=== PATIENT | female | born 1970 | race Caucasian/White ===

== ENCOUNTER 2022-05-19 07:47 | Emergency (ER) | payer OTHER, SELFPAY ==
[2022-05-19 07:52] VITALS: BP 137/82; PULSE 78; RESP 20; TEMP 36.3; O2SAT 100; BMI 48.8
[2022-05-19 08:52] VITALS: BP 150/89; PULSE 64; O2SAT 99
[2022-05-19 08:53] VITALS: PULSE 64; O2SAT 99
[2022-05-19 09:00] VITALS: PULSE 60; O2SAT 97
[2022-05-19 09:02] VITALS: BP 124/80; PULSE 68; O2SAT 97
[2022-05-19 09:05] LABS: Basophils Absolute Auto 0.02 K/uL (0.00-0.30); Basophils Percent Auto 0.2 % (0.0-3.0); Eosinophils Percent Auto 1.2 % (0.0-7.0); Hematocrit 48.3 % (33.0-51.0); Hemoglobin* 15.8 gm/dL (12.0-16.0); Immature Granulocytes Abs Auto 0.02 K/uL (0.00-0.30); Immature Granulocytes Pct Auto 0.2 %; Lymphocytes Absolute Auto 1.82 K/uL (0.90-2.90); Lymphocytes Percent Auto 22.4 % (20-44); Mean Corpuscular HGB Conc 33 gm/dL (32-36); Mean Corpuscular Hemoglobin 28 pg (26-34); Mean Corpuscular Volume 85 fL (80-100); Monocytes Percent Auto 5.7 % (0.0-11.0); Neutrophils Absolute Auto 5.69 K/uL (1.7-7.0); Neutrophils Percent Auto 70.3 % (42.0-72.0); Platelet Count* 332 K/uL (140-440); RDW Coefficient of Variation % 13.6 % (11.5-15.5); Red Blood Count 5.71 m/uL (4.00-5.20); White Blood Count* 8.11 K/uL (4.50-11.00)
[2022-05-19 09:16] LABS: Slide Review Reflex No
[2022-05-19 09:19] LABS: Albumin* 4.5 g/dL (3.3-5.0)
[2022-05-19 09:20] LABS: Chloride* 109 mmol/L (96-114); Potassium* 4.1 mmol/L (3.6-5.1); Sodium* 141 mmol/L (135-149)
[2022-05-19 09:22] LABS: Alkaline Phosphatase* 79 U/L (40-150); Aspartate Amino Transferase* 21 U/L (12-35); Bilirubin Direct* 0.2 mg/dL (0.0-0.5); Bilirubin Total* 0.6 mg/dL (0.1-1.5); D Dimer Quantitative* 0.31 ug/ml (0.00-0.50)
[2022-05-19 09:23] LABS: Alanine Aminotransferase* 20 U/L (4-35); Creatinine* 0.7 mg/dL (0.5-1.5); Est. Creatinine Clearance* 74.35; Estimated Glomerular Filt Rate 104 ml/min
[2022-05-19 09:24] LABS: Blood Urea Nitrogen* 18 mg/dL (7-30); Calcium* 9.1 mg/dL (8.4-10.6); Carbon Dioxide* 25 mmol/L (20-32); Glucose* 94 mg/dL (60-115)
[2022-05-19] MEDS: KETOROLAC 15 MG/ML inj IVP (09:25)
[2022-05-19 09:27] LABS: C Reactive Protein* 1.6 mg/dL (0.5-1.0)
--- NOTE | 2022-05-19 09:27 | ED_ITS ---
HPI - General Adult General Date Seen: 05/19/22 Chief complaint: Chest Pain Stated complaint: sore chest area Time Seen by Provider: 05/19/22 08:08 Source: patient Mode of arrival: ambulatory Limitations: no limitations History of Present Illness HPI narrative: Patient is a 51-year-old woman who presents for evaluation of anterior chest pain which started yesterday. She says she was at rest when it started and it has been consistent since then. She describes as like muscle soreness is if she has lifted weights but she denies having done any exercise like that. She says it hurts to move like when she twists her chest, but it does not hurt to take a deep breath. She has not been short of breath, nauseated, or diaphoretic. It does not hurt more with exertion or with eating, but it does feel better sitting up then with laying down. She does not have a history of reflux. Gallbladder is absent. She has not had any fevers or cough. No lower extremity swelling or pain. No personal history of coronary artery disease, DVT or PE. Denies family history of same. She has not tried any medicines for her pain. She decided she should get it checked out today because it has persisted since yesterday. It is not any worse today than it was yesterday. She wonders if it might be stress related as she is concerned about her son and his job situation. She is somewhat tearful while talking about this, but does not overtly otherwise seem stressed or panicky. She does not smoke, denies significant alcohol use. Related Data Home Medications Medication Instructions Recorded Confirmed tirzepatide 2.5 mg/0.5 mL 2.5 mg subcut QWEEK 05/19/22 05/19/22 subcutaneous pen injector (Urielunmarina) Review of Systems Status of ROS: Reports: 10 or more systems reviewed and unremarkable except as noted in History and below PFS PFS Social History Smoking Status: Never smoker Do you use any of these nicotine containing products: None How often do you have a drink containing alcohol: monthly or less How many standard drinks containing alcohol do you have on a typical day: 1 or 2 AUDIT-C Alcohol total score: 1 Non-prescribed substance use: denies use Exam Narrative: Exam Narrative: Vital signs as noted above. In general, an alert, well-appearing patient. Head: Normocephalic, atraumatic. Eyes: Pupils are equal reactive. Extraocular movements are full. Conjunctivae are normal. ENT: Mucous membranes are moist. Throat is normal. Neck: Supple without lymphadenopathy. Heart: Regular rate and rhythm. No murmur or rub. Chest wall is nontender to palpation. Lungs: Clear bilaterally. No increased work of breathing, crackles or wheezes. Abdomen: Soft and nontender. No organomegaly. Extremities: Well perfused. No edema. No calf tenderness. Pulses intact. Neurologic: Patient is alert and oriented to person and place. Speech is fluent. Face is symmetric. Moves all extremities equally. Affect: Normal. Skin: Warm and dry. Well perfused. Const: Vital Signs, click to edit/add: Vital Signs - 24 hr 05/19/22 07:52 05/19/22 12:20 Temperature 97.3 F L 97.3 F L Pulse Rate [Pulse Oximeter] 78 78 Respiratory Rate 20 20 Blood Pressure [Ri ght Upper Arm] 137/82 147/82 H Pulse Oximetry 100 Oxygen Delivery Me thod Room Air Course Course Hospital Course: On arrival, she had an EKG which by my review showed a normal sinus rhythm, ventricular rate of 64. No acute ST segment changes. No OH depression. T- waves are unremarkable. Overall, some features of this seemed chest wall re lated, the fact that it hurts to twist her chest sounds more chest wall than anything else. However, the fact that it feels better to set up rather than lie down is somewhat suggestive of pericarditis. Her EKG does not show any suggestion of pericarditis however. Will see if inflammatory markers are elevated at all. Initial troponin is 0. I am going to try some Toradol and see if that is helpful for her symptomatically. Given that symptoms have been constant since yesterday, I think a negative troponin is helpful in suggesting that this is not likely due to coronary artery disease. D-dimer is pending. CBC shows a normal white blood cell count, hemoglobin is 15.8, platelets are normal. If D-dimer is negative, will do a chest x-ray to rule out other less likely causes such as pneumonia, pneumothorax, pleural effusion, pulmonary edema. LFTs are normal, given absent gallbladder and lack of abdominal pain or tenderness, I think abdominal causes such as pancreatitis, gastritis, gas troesophageal reflux are somewhat less likely. D-dimer was negative, I think effectively ruling out PE. Her CRP was 1.6, sed rate was normal. COVID was negative. A 2 hour troponin was 0. I have reviewed all this with her. Acute coronary syndrome I think is effectively ruled out with 24 hours of symptoms and 2- troponins. Did discuss with her that this does not rule out the presence of coronary artery disease, but my suspicion is relatively low that today's symptoms are due to coronary artery disease. There is a positional nature that is possibly suggestive of pericarditis. The fact t hat it hurts when she moves her chest wall is less suggestive of pericarditis and more suggestive that this is something in the chest wall itself. I have talked through all this with her. I think for now makes most sense to just to treat with anti-inflammatories and see how she does over the next couple days. If she is not improving I would like her to check in with primary care next week. Discussed that if she has worsening symptoms such as fever, significant shortness of breath or severe pain she should return to the emergency department. Otherwise, for persistent symptoms see primary care and additional evaluation may be needed such as echo. Vital Signs Vital signs: Initial Vital Signs Temperature 97.3 F L 05/19/22 07:52 Temperature Source Temporal Artery Scan 05/19/22 07:52 Pulse Rate 78 05/19/22 07:52 Pulse Rhythm 05/19/22 07:52 Respiratory Rate 20 05/19/22 07:52 Blood Pressure 137/82 05/19/22 07:52 Blood Pressure Mean 100 05/19/22 07:52 Blood Pressure Position Sitting 05/19/22 07:52 Pulse Oximetry 100 05/19/22 07:52 Oxygen Delivery Method 05/19/22 07:52 Vital Signs Temperature 97.3 F L 05/19/22 07:52 Pulse Rate 78 05/19/22 07:52 Respiratory Rate 20 05/19/22 07:52 Blood Pressure 137/82 05/19/22 07:52 Pulse Oximetry 100 05/19/22 07:52 Oxygen Delivery Method 05/19/22 07:52 Temperature 97.3 F L 05/19/22 12:20 Pulse Rate 78 05/19/22 12:20 Respiratory Rate 20 05/19/22 12:20 Blood Pressure 147/82 H 05/19/22 12:20 Pulse Oximetry 100 05/19/22 07:52 Oxygen Delivery Method 05/19/22 07:52 Medical Decision Making Lab Data Labs: Lab Results 05/19/22 05/19/22 05/19/22 Range/Units 08:45 08:45 08:45 WBC 8.11 (4.50-11.00) K/uL RBC 5.71 H (4.00-5.20) m/uL Hgb 15.8 (12.0-16.0) gm/dL Hct 48.3 (33.0-51.0) % MCV 85 (80-100) fL MCH 28 (26-34) pg MCHC 33 (32-36) gm/dL RDW Coeff of Leah 13.6 (11.5-15.5) % Plt Count 332 (140-440) K/uL Neut % (Auto) 70.3 (42.0-72.0) % Lymph % (Auto) 22.4 (20-44) % Cocke % (Auto) 5.7 (0.0-11.0) % Eos % (Auto) 1.2 (0.0-7.0) % Baso % (Auto) 0.2 (0.0-3.0) % Neut # (Auto) 5.69 (1.7-7.0) K/uL Lymph # (Auto) 1.82 (0.90-2.90) K/uL Cocke # (Auto) 0.50 (0.00-0.90) K/UL Eos # (Auto) 0.10 (0.00-0.50) K/uL Baso # (Auto) 0.02 (0.00-0.30) K/uL ESR (2-20) mm/hr D-Dimer Quant (PE/DVT) 0.31 (0.00-0.50) ug/ml Sodium 141 (135-149) mmol/L Potassium 4.1 (3.6-5.1) mmol/L Chloride 109 (96-114) mmol/L Carbon Dioxide 25 (20-32) mmol/L BUN 18 (7-30) mg/dL Creatinine 0.7 (0.5-1.5) mg/dL Estimated Creat Clear 74.35 Estimated GFR 104 ml/min Glucose 94 (60-115) mg/dL Calcium 9.1 (8.4-10.6) mg/dL Total Bilirubin (0.1-1.5) mg/dL Direct Bilirubin (0.0-0.5) mg/dL AST (12-35) U/L ALT (4-35) U/L Alkaline Phosphatase (40-150) U/L C-Reactive Protein 1.6 H (0.5-1.0) mg/dL NT-Pro-B Natriuret Pep pg/mL Total Protein (6.0-8.3) g/dL Albumin (3.3-5.0) g/dL SARS-CoV-2 (PCR) (Negative) POC Troponin I (0.01-0.04) ng/ml 05/19/22 05/19/22 05/19/22 Range/Units 08:45 08:45 08:45 WBC (4.50-11.00) K/uL RBC (4.00-5.20) m/uL Hgb (12.0-16.0) gm/dL Hct (33.0-51.0) % MCV (80-100) fL MCH (26-34) pg MCHC (32-36) gm/dL RDW Coeff of Leah (11.5-15.5) % Plt Count (140-440) K/uL Neut % (Auto) (42.0-72.0) % Lymph % (Auto) (20-44) % Cocke % (Auto) (0.0-11.0) % Eos % (Auto) (0.0-7.0) % Baso % (Auto) (0.0-3.0) % Neut # (Auto) (1.7-7.0) K/uL Lymph # (Auto) (0.90-2.90) K/uL Cocke # (Auto) (0.00-0.90) K/UL Eos # (Auto) (0.00-0.50) K/uL Baso # (Auto) (0.00-0.30) K/uL ESR (2-20) mm/hr D-Dimer Quant (PE/DVT) (0.00-0.50) ug/ml Sodium (135-149) mmol/L Potassium (3.6-5.1) mmol/L Chloride (96-114) mmol/L Carbon Dioxide (20-32) mmol/L BUN (7-30) mg/dL Creatinine (0.5-1.5) mg/dL Estimated Creat Clear Estimated GFR ml/min Glucose (60-115) mg/dL Calcium (8.4-10.6) mg/dL Total Bilirubin 0.6 (0.1-1.5) mg/dL Direct Bilirubin 0.2 (0.0-0.5) mg/dL AST 21 (12-35) U/L ALT 20 (4-35) U/L Alkaline Phosphatase 79 (40-150) U/L C-Reactive Protein (0.5-1.0) mg/dL NT-Pro-B Natriuret Pep 39 pg/mL Total Protein 8.0 (6.0-8.3) g/dL Albumin 4.5 (3.3-5.0) g/dL SARS-CoV-2 (PCR) (Negative) POC Troponin I 0.00 L (0.01-0.04) ng/ml 05/19/22 05/19/22 05/19/22 Range/Units 08:45 08:50 10:50 WBC (4.50-11.00) K/uL RBC (4.00-5.20) m/uL Hgb (12.0-16.0) gm/dL Hct (33.0-51.0) % MCV (80-100) fL MCH (26-34) pg MCHC (32-36) gm/dL RDW Coeff of Leah (11.5-15.5) % Plt Count (140-440) K/uL Neut % (Auto) (42.0-72.0) % Lymph % (Auto) (20-44) % Cocke % (Auto) (0.0-11.0) % Eos % (Auto) (0.0-7.0) % Baso % (Auto) (0.0-3.0) % Neut # (Auto) (1.7-7.0) K/uL Lymph # (Auto) (0.90-2.90) K/uL Cocke # (Auto) (0.00-0.90) K/UL Eos # (Auto) (0.00-0.50) K/uL Baso # (Auto) (0.00-0.30) K/uL ESR 13 (2-20) mm/hr D-Dimer Quant (PE/DVT) (0.00-0.50) ug/ml Sodium (135-149) mmol/L Potassium (3.6-5.1) mmol/L Chloride (96-114) mmol/L Carbon Dioxide (20-32) mmol/L BUN (7-30) mg/dL Creatinine (0.5-1.5) mg/dL Estimated Creat Clear Estimated GFR ml/min Glucose (60-115) mg/dL Calcium (8.4-10.6) mg/dL Total Bilirubin (0.1-1.5) mg/dL Direct Bilirubin (0.0-0.5) mg/dL AST (12-35) U/L ALT (4-35) U/L Alkaline Phosphatase (40-150) U/L C-Reactive Protein (0.5-1.0) mg/dL NT-Pro-B Natriuret Pep pg/mL Total Protein (6.0-8.3) g/dL Albumin (3.3-5.0) g/dL SARS-CoV-2 (PCR) Negative SARS-CoV-2 (Negative) POC Troponin I 0.00 L (0.01-0.04) ng/ml Discharge Plan Discharge Clinical Impression: Chest pain Patient Disposition: Home, Self-Care Condition: Improved Instructions: Acute Pericarditis (ED), Chest Wall Pain (ED) Additional Instructions: Ibuprofen 400 mg 3 times daily with food. If you develop new symptoms such as significant shortness of breath, fever, severe pain, return at any time to the emergency department. Otherwise, follow up with primary care next week if symptoms are persistent. Prescriptions: No Action Mounjaro 2.5 mg/0.5 mL pen injector 2.5 mg subcut QWEEK Follow Up/Referrals: Latonia Corey MD [Primary Care Provider] - Stand Alone Forms: [employer] Info Instructions
[2022-05-19 09:33] LABS: NT Pro B Type NatriureticPept* 39 pg/mL
--- NOTE | 2022-05-19 09:42 | CRLHL7_ITS ---
For Patients: As a result of the Cures Act, medical imaging exams and procedure reports are released immediately into your electronic medical record. You may view this report before your referring provider. If you have questions, please contact your health care provider. INDICATION: Chest pain COMPARISON: None TECHNIQUE: PA and lateral views of the chest were acquired FINDINGS: TUBES AND LINES: None. HEART AND MEDIASTINUM: The heart size is normal. The mediastinal contour appears normal for patient age. LUNGS AND PLEURAL SPACES: The lungs appear normal.The pleural spaces are unremarkable. OSSEOUS STRUCTURES: Age-appropriate appearance. No acute focal finding. IMPRESSION: No evidence of active pulmonary disease. Dictated by Onofre Murcia MD @ 05/19/2022 9:56:48 AM (Electronically Signed)
[2022-05-19 10:00] LABS: SARS PCR* Negative SARS-CoV-2 (Negative)
[2022-05-19 10:34] LABS: Erythrocyte SedimentationRate* 13 mm/hr (2-20)
[2022-05-19 12:20] VITALS: BP 147/82; PULSE 78; RESP 20; TEMP 36.3
== END 2022-05-19 12:21 | disposition home or self-care (01) ==
PROVIDERS: Emergency Provider Emergency Medicine; PCP Family Medicine
DX: R07.9 Chest pain, unspecified (principal)
CPT/HCPCS: 36415; 71046; 80048; 80076; 83880; 84484; 85025; 85379; 85651; 86140; 87635; 93005; 96374; 99284; 99285; J1885